=== PATIENT | female | born 1985 | race Caucasian/White ===

== ENCOUNTER 2016-09-29 17:42 | Inpatient (IN) | payer OTHER ==
[~2016-09-29] VITALS: Ht 157.5 cm; Wt 88.6 kg
[~2016-09-29 17:42] MED LIST: DEXAMETHASONE0.5 MG PO; DEXPAK1.5 M1 PO; ENDOCET 5-3251 EACH PO; FLOMAX0.4 MG PO; IBUPROFEN800 MG PO; LOW DOSE ASPIRI81 M1 PO; OXYCODONE HCL5 M1 PO; PRENATAL TABLE1 EACH PO; SYSTANE LIQUID15 ML BOTH EYES; SYSTANE ULTRA 015 ML BOTH EYES; TYLENOL EXTRA500 MG PO; ZOFRAN8 MG PO
[2016-09-29 18:13] VITALS: BP 109/70
[2016-09-29 18:25] LABS: EOSINOPHIL COUNT 0.1 K/uL (0-0.3); HEMATOCRIT 36.2 % (36.0-46.0); IMMATURE GRANULOCYTE COUNT 0.1 K/uL; INSTRUMENT ABS NEUTROPHIL CT 8.5 K/uL; LYMPHOCYTE COUNT 1.7 K/uL (1.0-2.8); MCH 31.3 PG (29.0-34.0); MCHC 33.4 G/DL (30.0-36.0); MCV 93.5 FL (83-99); MONOCYTE (%) 6.3 % (3-12); MONOCYTE COUNT 0.7 K/uL (0-0.8); NEUTROPHIL (%) 76.6 % (45-76); NEUTROPHIL COUNT 8.5 K/uL (1.8-6.4); PLATELET COUNT 222 K/uL (156-360); RBC DIS.WIDTH-CV 13.4 % (11.8-14.6); RBC DIS.WIDTH-SD 45.7 % (39-53); RED BLOOD COUNT 3.87 M/uL (3.80-5.20); WHITE BLOOD COUNT 11.1 K/uL (4.1-10.2)
[2016-09-29 19:01] VITALS: BP 106/59
[2016-09-29] MEDS ORDERED: MOTRIN800 MG PO (21:44)
[2016-09-29] MEDS ORDERED: PERCOCET 5/31 TABLET PO (21:44)
[2016-09-29 23:01] VITALS: BP 112/53
[2016-09-29 23:30] VITALS: BP 114/62
[2016-09-30] VITALS (9 sets, daily range): BP systolic 96–124; BP diastolic 50–68
[2016-09-30 06:18] LABS: EOSINOPHIL (%) 0 % (0-5); HEMATOCRIT 32.6 % (36.0-46.0); IMMATURE GRANULOCYTE (%) 0.6 % (0.0-0.7); IMMATURE GRANULOCYTE COUNT 0.1 K/uL; INSTRUMENT ABS NEUTROPHIL CT 12.4 K/uL; LYMPHOCYTE COUNT 1.1 K/uL (1.0-2.8); MCH 30.8 PG (29.0-34.0); MCHC 32.5 G/DL (30.0-36.0); MCV 94.8 FL (83-99); MEAN PLAT.VOLUME 11.2 uM^3 (9.5-12.4); MONOCYTE (%) 5.2 % (3-12); MONOCYTE COUNT 0.8 K/uL (0-0.8); NEUTROPHIL (%) 86.4 % (45-76); NEUTROPHIL COUNT 12.4 K/uL (1.8-6.4); PLATELET COUNT 196 K/uL (156-360); RBC DIS.WIDTH-CV 13.8 % (11.8-14.6); RBC DIS.WIDTH-SD 47.5 % (39-53); RED BLOOD COUNT 3.44 M/uL (3.80-5.20); WHITE BLOOD COUNT 14.4 K/uL (4.1-10.2)
[2016-10-01 03:45] VITALS: BP 114/69
[2016-10-01 07:33] VITALS: BP 97/58
[2016-10-01 10:41] VITALS: BP 98/55
[2016-10-01 15:13] VITALS: BP 116/71
[2016-10-01 19:08] VITALS: BP 115/62
[2016-10-01 23:18] VITALS: BP 109/62
[2016-10-02 03:08] VITALS: BP 114/89
[2016-10-02 07:19] VITALS: BP 108/72
[2016-10-02 14:53] VITALS: BP 107/59
== END 2016-10-02 19:10 | disposition home or self-care (01) | DRG 765 ==
LOC: LDRP-OP → 2WEST 17:47 → LDRP-OP 11-18 16:18
PROVIDERS: Obstetrics & Gynecology
PROC: 10D00Z1 Extraction of Products of Conception, Low, Open Approach (ICD-10-PCS; principal; 2016-09-29)
DX: O41.03X0 Oligohydramnios, third trimester, not applicable or unspecified (principal); O60.14X0 Preterm labor third trimester with preterm delivery third trimester, not applicable or unspecified; O87.0 Superficial thrombophlebitis in the puerperium; Z37.0 Single live birth; M35.00 Sjogren syndrome, unspecified; Z3A.37 37 weeks gestation of pregnancy
CPT/HCPCS: 85025; 86850; 86900; 86901; J1100; J1580; J1720; J2175; J2274; J2405; J2765; J3010; J7050; J7120

== ENCOUNTER 2016-10-04 15:57 | Inpatient (IN) | payer OTHER ==
[~2016-10-04] VITALS: Ht 157.5 cm; Wt 84.6 kg
[~2016-10-04 15:57] MED LIST changes: +MOTRIN800 MG PO; +PERCOCET 5/31 TABLET PO
[2016-10-04 17:10] LABS: HEMATOCRIT 34.4 % (36.0-46.0); MCH 31.7 PG (29.0-34.0); MCHC 33.1 G/DL (30.0-36.0); MCV 95.6 FL (83-99); PLATELET COUNT 211 K/uL (156-360); RBC DIS.WIDTH-CV 13.7 % (11.8-14.6); RBC DIS.WIDTH-SD 47.5 % (39-53); WHITE BLOOD COUNT 7.9 K/uL (4.1-10.2)
[2016-10-04 17:19] LABS: CHLORIDE 106 mEq/L (99-109); POTASSIUM 4.1 mEq/L (3.7-5.4); SODIUM 140 mEq/L (136-147)
[2016-10-04 17:20] LABS: GLUCOSE 100 mg/dL (70-99)
[2016-10-04 17:22] LABS: ANION GAP 10 MEQ/L (2-14)
[2016-10-04 17:24] LABS: GFR ESTIMATE (CALCULATED) > 59 mL/min/
[2016-10-04 17:25] LABS: UREA NITROGEN (BUN) 18 mg/dL (9-23)
[2016-10-04 17:30] LABS: TROP-I INTERPRETATION NEGATIVE; TROPONIN-I < 0.01 ng/mL (0.0-0.30)
[2016-10-04 18:09] LABS: D-DIMER ELISA > 4.00 mg/L FEU (< 0.57)
[2016-10-04 18:23] LABS: ADD MIUA? YES; BILIRUBIN NEGATIVE; BLOOD LARGE; GLUCOSE (STRIP) NEGATIVE; KETONES NEGATIVE; LEUKOCYTES LARGE; NITRITE NEGATIVE; PROTEIN (STRIP) 100; SPECIFIC GRAVITY 1.008 (1.000-1.030); UROBILINOGEN 0.2 MG/DL (0.2-1.0)
[2016-10-04 18:31] LABS: COLOR RED ((YELLOW))
[2016-10-04 18:35] LABS: BACTERIA NONE SEEN /HPF; BUDDING YEAST 3+; EPITHELIAL CELLS 1+ /HPF; MUCUS NONE SEEN /LPF; RED BLOOD CELLS TNTC /HPF (0-5); UCUL ADDED? YES; UNCLASSIFIED CRYSTALS 3+ /HPF; WHITE BLOOD CELLS TNTC /HPF (0-5); WHITE BLOOD CELLS CLUMP MOD /HPF (0-5)
[2016-10-04] MEDS ORDERED: COLACE100 MG PO (21:16)
[2016-10-04] MEDS ORDERED: PERCOCET 5/31 TABLET PO (22:54)
[2016-10-04] MEDS ORDERED: MOTRIN800 MG PO (22:54)
[2016-10-05 00:43] VITALS: BP 140/81
[2016-10-05 04:02] VITALS: BP 106/72
[2016-10-05 04:09] LABS: TROP-I INTERPRETATION NEGATIVE; TROPONIN-I < 0.01 ng/mL (0.0-0.30)
[2016-10-05 07:54] VITALS: BP 124/58
[2016-10-05 12:00] VITALS: BP 116/66
[2016-10-05 16:00] VITALS: BP 129/83
[2016-10-05 21:12] VITALS: BP 119/69
[2016-10-05 22:42] LABS: INFLUENZA A VIRAL ANTIGEN NEGATIVE; INFLUENZA B VIRAL ANTIGEN NEGATIVE
[2016-10-06 00:41] VITALS: BP 131/76
[2016-10-06 05:04] VITALS: BP 110/66
[2016-10-06 07:37] VITALS: BP 96/62
[2016-10-06 16:10] VITALS: BP 137/70
[2016-10-06] MEDS ORDERED: ADVAIR HFA120 INHALA IH (16:35)
== END 2016-10-06 18:16 | disposition home or self-care (01) | DRG 303 ==
LOC: EME 15:57 → EDOF 22:10 → 2EASTP 22:10
PROVIDERS: Emergency Medicine; Hospitalist; Internal Medicine Pulmonary Disease
DX: I51.7 Cardiomegaly (principal); R00.1 Bradycardia, unspecified; O99.215 Obesity complicating the puerperium; M35.00 Sjogren syndrome, unspecified; M06.9 Rheumatoid arthritis, unspecified; Z68.34 Body mass index [BMI] 34.0-34.9, adult; E66.3 Overweight; J43.9 Emphysema, unspecified; J98.01 Acute bronchospasm; R06.00 Dyspnea, unspecified; Z87.891 Personal history of nicotine dependence
CPT/HCPCS: 71020; 71275; 80048; 81003; 82103 90; 83880; 84484; 85027; 85379; 87086; 87502; 93005; 93306; 93970; 94640; 94640 76; 99202; 99281; 99284